=== PATIENT | female | born 1990 | race Two or more races ===

== ENCOUNTER 2016-10-26 03:10 | Emergency (ER) | payer OTHER ==
[~2016-10-26] VITALS: Ht 157.5 cm; Wt 86.2 kg
--- NOTE | ~2016-10-26 | CT2 ---
[facility] A Service [facility] RADIOLOGY TEXT RESULTS PATIENT: ERENDIRA FAROOQ LOCATION: [facility] : [birth year] UNIT #: [id number] AGE: [address]: Cole Soriano MD SEX: F ORDER DR: [id number] [facility] [place], [place] [address] [id number] MR#: [id number] #: [id number] NAME: ERENDIRA FAROOQ : 1990 SEX: F STUDY DATE/TIME: 10/26/2016 5:44 UNIT: [facility] ROOM: STUDY DESCRIPTION: CT Abd and Pelv W Cont Attending Physician: Cole Soriano M.D. Ordering Physician: Micah Blackman M.D. Primary Care Physician: No Primary Care Physician MEDICAL IMAGING REPORT This report is preliminary unless electronic signature is present EXAM CT abdomen and pelvis with IV contrast. COMPARISON None. INDICATIONS 26-year-old female with epigastric abdominal pain and mid back pain as well as emesis for [address] imaging of the abdomen and pelvis was performed after IV administration of Isovue-370. Coronal and sagittal reformats were constructed. This CT exam was performed with one or more of the following radiation dose reduction techniques: automatic exposure control, adjustment of mA and/or kV according to patient size, and iterative reconstruction. FINDINGS No acute fractures or suspicious osseous lesions. No acute findings in the lower chest. In the posterior segment of the right hepatic lobe there is an area of ill-defined enhancement measuring up to 1.4 cm, perhaps reflecting a flash hemangioma or transient perfusional anomaly. The liver is hypoattenuating which may reflect steatosis. There is mild hepatomegaly with hepatic length of 18.4 cm. Normal biliary caliber. Pancreas, spleen, adrenal glands and kidneys are normal. No hydronephrosis or hydroureter. CT appearance of the uterus is unremarkable. Urinary bladder is within normal appearance. No adnexal masses. Moderate diffuse colonic stool burden. [facility] A Service of [facility] RADIOLOGY TEXT RESULTS PATIENT: ERENDIRA FAROOQ LOCATION: [facility] : [birth year] UNIT #: [id number] AGE: [address]: Cole Soriano MD SEX: F ORDER DR: There are pericecal lymph nodes, the large of which measures 9 mm in short axis, likely reactive. Appendix is not definitely seen and may be surgically absent. No pericecal inflammatory change to suggest acute appendicitis. No free fluid or pneumoperitoneum. Abdominal aorta is normal in course and caliber, patency of its main branches. There is no evidence of venous thrombosis. No evidence of adenopathy. IMPRESSION 1. No acute findings in the abdomen, pelvis or imaged lower chest. Please note that the appendix is not definitely seen and may be surgically absent. There are no secondary findings to suggest acute appendicitis. 2. Mild hepatomegaly. Questionable hepatic steatosis. No evidence of cirrhosis. 3. 1.4 cm ill-defined enhancing lesion in the posterior segment right hepatic lobe, favoring a flash hemangioma or transient perfusional anomaly. Consider outpatient CT abdomen with and without IV contrast hepatic protocol for further characterization. Dictated by... Joey Fonutain M.D. THIS IS AN ELECTRONICALLY VERIFIED REPORT Joey Fountain M.D. at 10/29/2016 10:50 AM AYESHA/noemy TD: 10/26/2016 11:44 JOB #: [id number] MEDICAL IMAGING REPORT Page 1 of 1 COPY
[2016-10-26 04:23] LABS: URINE SOURCE CLEAN CATCH
[2016-10-26 04:45] LABS: BASOPHIL% 0.3 % (0-2.5); EOSINOPHIL# 0.2 X10e3 (0-0.7); EOSINOPHIL% 1.8 % (0.0-7.0); HEMATOCRIT 42.8 % (35.0-45.0); HEMOGLOBIN 14.5 gm/dL (12.0-16.0); LYMPHOCYTE# 1.1 X10e3 (1.0-3.5); LYMPHOCYTE% 11.2 % (17.0-45.0); MEAN CELL VOLUME 84.9 FL (83-96); MEAN CORPUSCULAR HEMOGLOBIN 28.7 PG (28-34); MEAN CORPUSCULAR HGB CONC 33.8 g/dL (30-36); MEAN PLATELET VOLUME 10.9 FL (6.5-11.5); MONOCYTE# 0.5 X10e3 (0-1.0); MONOCYTE% 4.8 % (3.0-12.0); NEUTROPHIL% 81.9 % (40-75); PLATELET COUNT 135 X10e3 (140-420); RED BLOOD COUNT 5.04 X10e (3.90-5.30); RED CELL DISTRIBUTION WIDTH 12.9 % (11.0-15.5); WHITE BLOOD COUNT 9.8 X10e3 (4.0-10.5)
[2016-10-26 04:51] LABS: DIFF IND NO
[2016-10-26 04:51] LABS: URINE APPEARANCE CLOUDY; URINE BILIRUBIN NEG (NEG); URINE BLOOD NEG (NEG); URINE COLOR YELLOW; URINE GLUCOSE NEG (NEG); URINE KETONE NEG (NEG); URINE LEUKOCYTE ESTERASE 1+ (NEG); URINE NITRATE NEG (NEG); URINE PROTEIN NEG (NEG); URINE SPECIFIC GRAVITY 1.032 (1.003-1.035); URINE UROBILINOGEN 0.2 MG/DL (NEG)
[2016-10-26 04:55] LABS: CULTURE INDICATED? YES; URINE BACTERIA AUWI 2+ (NEGATIVE); URINE SQUAMOUS EPITHELIAL CELL FEW /[HPF]
[2016-10-26 04:59] LABS: ALBUMIN SERUM 4.3 g/dL (3.5-5.0); BILIRUBIN, DIRECT 0.1 mg/dL (0.0-0.2); BILIRUBIN,INDIRECT 0.7 mg/dL (0.0-0.9); BILIRUBIN,TOTAL 0.8 mg/dL (0.2-2.0); BUN/CREATININE RATIO 21.42; CALCIUM SERUM 8.8 mg/dL (8.4-10.2); CREATININE SERUM 0.7 mg/dL (0.6-1.4); GLOM FILT RATE Estimated 121.3 mL/min (>60); POTASSIUM 3.5 mmol/L (3.5-5.1); PROTEIN TOTAL SERUM 8.2 g/dL (6.0-8.3)
== END 2016-10-26 07:31 | disposition home or self-care (01) ==
LOC: CED 03:10
DX: R10.13 Epigastric pain (principal); R10.11 Right upper quadrant pain; R11.2 Nausea with vomiting, unspecified; R19.7 Diarrhea, unspecified; Z88.0 Allergy status to penicillin
CPT/HCPCS: 36415; 74177; 80048; 80076; 81003; 83690; 84703; 85025; 87086; 96361; 96374; 96375; 99284; J1885; J2405; Q9967